=== PATIENT | female | born 1950 | race Caucasian/White ===

== ENCOUNTER 2022-04-08 10:15 | Emergency (ER) | payer MEDICARE, OTHER ==
[~2022-04-08] VITALS: Ht 165.1 cm; Wt 95.3 kg
[2022-04-08 10:56] LABS: ALBUMIN 4.4 g/dL (3.4-4.8); POTASSIUM 4.5 mmol/L (3.5-5.1)
[2022-04-08 10:57] LABS: BASO # 0.02 K/mm3 (0.02-0.10); CALCIUM 10.9 mg/dL (8.3-10.5); HEMATOCRIT 42.1 % (37.0-47.0); HEMOGLOBIN 13.9 g/dL (12.5-16.0); MEAN CELL VOLUME 92 fl (78-100); MEAN CORPUSCULAR HEMOGLOBIN 30 pg (27-31); MEAN CORPUSCULAR HGB CONC 33 g/dL (33-37); MEAN PLATELET VOLUME 9.3 fl (7.4-10.4); MONO # 0.33 K/mm3 (0.20-0.80); NEU # 10.87 K/mm3 (1.40-6.50); PLATELET COUNT 302 K/mm3 (130-400); RED BLOOD COUNT 4.58 M/mm3 (4.10-5.30); RED CELL DISTRIBUTION WIDTH 12.9 % (11.5-14.5); WHITE BLOOD COUNT 11.8 K/mm3 (4.8-10.8)
[2022-04-08 10:58] LABS: TOTAL PROTEIN 8.2 g/dL (6.2-8.1)
[2022-04-08 11:00] LABS: TOTAL BILIRUBIN 0.4 mg/dL (0.2-1.2)
[2022-04-08 12:09] LABS: URINE APPEARANCE CLEAR; URINE BILIRUBIN NEGATIVE (NEGATIVE); URINE BLOOD 50 ery/uL (NEGATIVE); URINE COLOR YELLOW; URINE GLUCOSE NEGATIVE (NEGATIVE); URINE KETONE NEGATIVE (NEGATIVE); URINE LEUKOCYTE ESTERASE TRACE (NEGATIVE); URINE NITRATE NEGATIVE (NEGATIVE); URINE PROTEIN(semi-quant) 1+ (NEGATIVE); URINE UROBILINOGEN NORMAL (NORMAL); URINE WBC 0-1 /hpf (0-3)
[2022-04-08] MEDS ORDERED: PERCOCET 325 MG1 TA2 PO ×2 (14:53→14:56)
[2022-04-08] MEDS ORDERED: ZOFRAN ODT4 MG PO ×2 (14:53→14:56)
[2022-04-08] MEDS ORDERED: CEFDINIR300 MG PO ×2 (14:53→14:56)
[2022-04-08 15:14] VITALS: BP 138/87
== END 2022-04-08 15:10 | disposition home or self-care (01) ==
LOC: ED 10:15
PROVIDERS: Family Medicine
DX: N12 Tubulo-interstitial nephritis, not specified as acute or chronic (principal); N23 Unspecified renal colic
CPT/HCPCS: J0696; J1885; J3010; J7030; J7040; Q9967